=== PATIENT | female | born 1990 | race Caucasian/White ===

== ENCOUNTER 2018-10-03 08:57 | Outpatient (CLI) | END 2018-10-03 10:01 | disposition home or self-care (01) ==

== ENCOUNTER 2018-10-20 10:48 | Outpatient (CLI) | END 2018-10-20 13:00 | disposition home or self-care (01) ==

== ENCOUNTER 2018-10-21 11:10 | Outpatient (CLI) | END 2018-10-21 15:35 | disposition home or self-care (01) ==

== ENCOUNTER 2018-10-24 08:43 | Inpatient (IN) | payer OTHER ==
[~2018-10-24] VITALS: Ht 157.5 cm; Wt 91.4 kg
[~2018-10-24 08:43] MED LIST: PREN-93 PO
[2018-10-24 08:58] VITALS: BP 121/71; PULSE 96; RESP 18; Ht 157.5 cm; Wt 91.4 kg
--- NOTE | 2018-10-24 11:17 | HP ---
Date/Time of Note Date/Time of Note DATE: 10/24/18 TIME: 11:00 OB - History Hx of Present Free Text/Dictation 28 years old. 38 weeks 4 days . , admitted to the hospital for induction of labor. Suspected -induced hypertension. Her urine protein is 650 mg in 24 hours collection. She denies headache blurry vision or epigastric pain Chief Complaint: Induction of labor suspected PIH Estimated Due Date: Nov 03, 2018 : 3 Para: 2 Care: Good Care Ultrasounds: Normal mid trimester US Obstetrical Complications: Pre-eclampsia Medical Complications: None Past Family/Social History * Past Medical, Surgical, Family and Obstetric Histories reviewed from chart. Rubella: immune RPR/VDRL: Negative GBS Status: Negative HBsAG: Negative OB Admission Exam Vital Signs Vital Signs Vital Signs Date Temp Pulse Resp B/P (MAP) Pulse Ox O2 O2 Flow FiO2 Time Delivery Rate 10/24/18 98.4 96 18 121/71 Room Air 08:58 (88) Physical Exam HEENT: WNL Heart: Rhythm Normal Lungs: Clear, Equal Abdomen: WNL Extremities: Normal Reflexes: Normal Cervical Dilatation: 3cm Effacement: 50% Station: -2 Membranes: Intact Heart Rate: 130's Accelerations: Accelerations Present Decelerations: No Decelerations Varibility: Moderate Intensity: Mild Last 72 hours Lab Results CBC & BMP 10/24/18 09:30 Liver Function Test 10/24/18 09:30 Alanine Aminotransferase (ALT/SGPT) 6 L Albumin 3.2 L Alkaline Phosphatase 249 H Aspartate Amino Transf (AST/SGOT) 15 Direct Bilirubin 0.00 Total Protein 6.2 OB Assessment/Plan Reason for admission: other (38-1/2 weeks . Suspected PIH) Other plan: 28 years old 38-1/2 weeks . Suspected PIH with 24-hour urine protein 650 mg. Admitted to the hospital for induction of labor. Denies headache blurry vision epigastric pain. Her heart rate is category 1. Her pelvic examination cervix is 3 cm dilated 50% effaced vertex at -2 station. Plan of induction discussed. All questions answered MUSA BAZAN MD Oct 24, 2018 11:11
--- NOTE | 2018-10-24 11:19 | TRIAGE ---
OB Triage Datetime Report Generated by CPN: 10/24/2018 11:19 Datetime: 10/24/2018 10:00 Stage of : OB Triage Datetime: 10/24/2018 09:57 EGA: 38.4 Datetime: 10/24/2018 08:54 Assessment Type: Triage Maternal Assessment Level of Consciousness: Fully Conscious DTR's/Clonus: DTRs 2+; No Clonus Headache: Denies Blurred Vision: No Respiratory Effort: Unlabored; Regular Rhythm; Equal Expansion Breath Sounds, Left: Clear and Equal Breath Sounds, Right: Clear and Equal Nausea/Vomiting: Denies RUQ Epigastric Pain: Denies Lower Extremities Edema: None Degree: None Upper Extremities Edema: None Degree: None Facial Edema: None Fall Risk Assessment History of Falling: (0) No Secondary Diagnosis: (0) No Ambulatory Aid: (0) Bedrest/Nurse Assist IV Therapy: (0) No Gait: (0) Normal/Bedrest/Immobile Mental Status: (0) Oriented to Own Ability Fall Score: 0 Fall Risk Score Definition: No Risk: No action required Datetime: 10/24/2018 08:53 Time of Arrival: 10/24/2018 08:36 EGA: 38.4 Arrived By: Ambulatory Arrived From: Home Chief Complaint: pt here with 24 HOUR URINE COLLECTION. Movement: Present Contractions: Denies/Absent Rupture of Membranes: Denies Vaginal Bleeding: None Vaginal Discharge: Denies Recent Sexual Intercouse: Denies Abdominal Trauma: Not Applicable Patient Complaints: Cramping Time Provider Notified: 10/24/2018 11:00 Provider Notified: HORTENSIA Initial Plan: 24 HOUR URINE COLLECTION Datetime: 10/24/2018 08:49 Labor Evaluation Monitor Mode: External Monitor Mode: External US Datetime: 10/21/2018 15:17 Heart Rate FHR Baseline Rate: 130 Monitor Mode: External US FHR Baseline Changes: No Baseline Change Variability: Moderate 6-25 bpm Accelerations: 15X15 Decelerations: None Category: Category I Datetime: 10/21/2018 11:20 Fall Score: 0 Fall Risk Score Definition: No Risk: No action required Datetime: 10/21/2018 11:10 EGA: 38.1 Datetime: 10/20/2018 10:54 Fall Score: 0 Fall Risk Score Definition: No Risk: No action required Datetime: 10/20/2018 08:55 EGA: 38.0 Datetime: 10/03/2018 09:07 Fall Score: 0 Fall Risk Score Definition: No Risk: No action required Datetime: 10/03/2018 09:06 EGA: 35.4
[2018-10-24] MEDS ORDERED: LIDOCAINE 1% (MPF) 30 ML INJ INJ PRN (14:30)
[2018-10-24] MEDS ORDERED: BUTORPHANOL 2 MG INJ IV PRN (14:30)
[2018-10-24] MEDS ORDERED: OXYTOCIN 30 UNITS/LR 500 ML IV PRN (14:30)
[2018-10-24] MEDS ORDERED: OXYTOCIN 30 UNITS/LR 500 ML IV SCH ×2 (14:30)
[2018-10-24] MEDS ORDERED: METHYLERGONOVINE 0.2 MG INJ IM PRN (14:30)
[2018-10-24] MEDS ORDERED: CARBOPROST 250 MCG INJ IM PRN (14:30)
[2018-10-24] MEDS ORDERED: IBUPROFEN 600 MG TAB PO PRN (14:30)
[2018-10-24] MEDS ORDERED: MISOPROSTOL 200 MCG TAB PR PRN (14:30)
[2018-10-24] MEDS ORDERED: AMPICILLIN 2 GM/NS (PMX) 100 ML IV ONE (14:30)
[2018-10-24] MEDS: LACTATED RINGER'S 1,000 ML IV SCH (14:34)
[2018-10-24] MEDS: OXYTOCIN 30 UNITS/LR 500 ML IV SCH (14:40)
[2018-10-24] MEDS: AMPICILLIN 1 GM/NS (PMX) 50 ML IV SCH (19:27)
[2018-10-25] MEDS: LACTATED RINGER'S 1,000 ML IV SCH ×3 (01:33→18:35)
[2018-10-25] MEDS: AMPICILLIN 1 GM/NS (PMX) 50 ML IV SCH ×6 (01:33→22:20)
[2018-10-25] MEDS: DEXTROSE 5%-LR 1,000 ML IV SCH (08:03)
[2018-10-25] MEDS: OXYTOCIN 30 UNITS/LR 500 ML IV SCH (15:04)
[2018-10-26] MEDS: AMPICILLIN 1 GM/NS (PMX) 50 ML IV SCH ×7 (02:53→20:30)
[2018-10-26] MEDS: DEXTROSE 5%-LR 1,000 ML IV SCH ×4 (06:40→15:57)
[2018-10-26] MEDS: LACTATED RINGER'S 1,000 ML IV SCH ×4 (06:40→22:08)
--- NOTE | 2018-10-26 10:39 | PREAC ---
Date/Time of Note Date/Time of Note DATE: 10/26/18 TIME: 10:39 Anesthesia Eval and Record Evaluation Time Pre-Procedure Interview DATE: 10/26/18 TIME: 10:39 Age 28 Sex female NPO: 8 hrs Preoperative diagnosis Planned procedure labor epidural Past Medical History Past Medical History: Includes GI: Morbid obesity Surgery & Anesthesia Issues No known issue Meds Anticoagulation: No Beta Louis within 24 hr: No Reason Beta Louis not given: Pt. not on B-Louis Reported Medications Vit No.124/Iron/FA ( Vitamin Tablet) 1 Each Tablet, 1 EACH PO, TAB 10/21/18 Current Medications Lactated Ringer's 1,000 ml @ 125 mls/hr Q8H IV Last administered on 10/26/18at 10:35; Admin Dose 125 MLS/HR; Start 10/24/18 at 14:08 Ampicillin 50 ml @ 100 mls/hr Q4H IV Last administered on 10/26/18at 10:34; Admin Dose 100 MLS/HR; Start 10/24/18 at 16:30 Butorphanol Tartrate (Stadol) 2 mg Q2H PRN IV PAIN; Start 10/24/18 at 14:30 Lidocaine (Xylocaine 1% (Mpf)) 30 ml ONCE PRN INJ EPISIOTOMY; Start 10/24/18 at 14:30 Oxytocin/Lactated Ringer's 500 ml @ 500 mls/hr ONCE POST IV ; Start 10/24/18 at 14:30 Oxytocin/Lactated Ringer's 500 ml @ 125 mls/hr POST IV ; Start 10/24/18 at 14:30 Ibuprofen (Motrin) 600 mg ONCE PRN PO PAIN LEVEL 1-5; Start 10/24/18 at 14:30 Oxytocin/Lactated Ringer's 500 ml @ 0 mls/hr ONCE PRN IV VAGINAL BLEEDING; Start 10/24/18 at 14:30 Methylergonovine Maleate (Methergine) 0.2 mg ONCE PRN IM VAGINAL BLEEDING; Start 10/24/18 at 14:30 Carboprost Tromethamine (Hemabate) 250 mcg ONCE PRN IM VAGINAL BLEEDING; Start 10/24/18 at 14:30 Misoprostol (Cytotec) 1,000 mcg ONCE PRN FL VAGINAL BLEEDING; Start 10/24/18 at 14:30 Oxytocin/Lactated Ringer's 500 ml @ 0 mls/hr FOR INDUCTION IV Last administered on 10/25/18at 15:04; Admin Dose 0 MLS/HR; Start 10/24/18 at 14:30 Dextrose/Lactated Ringer's 1,000 ml @ 125 mls/hr Q8H IV Last administered on 10/26/18at 06:40; Admin Dose 125 MLS/HR; Start 10/25/18 at 07:57 Meds reviewed: Yes Allergies Coded Allergies: No Known Allergy (Unverified , 10/03/18) Allergies Reviewed: Yes Labs/Studies Labs Reviewed: Reviewed by anesthesiologist Result Diagram: 10/24/18 1350 10/24/18 0930 test: Positive Pre-procedure Exam Last vitals Vital Signs Date Temp Pulse Resp B/P (MAP) Pulse Ox O2 O2 Flow FiO2 Time Delivery Rate 10/24/18 98.4 96 18 121/71 Room Air 08:58 (88) Airway: Adequate mouth opening, Adequate thyromental dist Mallampati: Mallampati II Teeth: Normal Lung: Normal Heart: Normal ASA Physical Status ASA physical status: 2 Emergency: None Planned Anesthetic Neuraxial: Epidural Pre-operative Attestations Prior to commencing anesthesia and surgery, the patient was re-evaluated, there was verification of: *The patient's identity *The results of appropriate recent lab work and preoperative vital signs *The above evaluation not changing prior to induction *Anesthetic plan, risk benefits, alternative and complications discussed with patient/family; questions answered; patient/family understands, accepts and wishes to proceed. ALEXYS BRAXTON Oct 26, 2018 10:39
[2018-10-26] MEDS ORDERED: DIPHENHYDRAMINE 50 MG INJ IV PRN (11:00)
[2018-10-26] MEDS ORDERED: ONDANSETRON 4 MG INJ IV PRN (11:00)
[2018-10-26] MEDS ORDERED: KETOROLAC 30 MG INJ IV PRN (11:00)
[2018-10-26] MEDS ORDERED: NALOXONE (0.4 MG/ML) INJ IV PRN (11:00)
[2018-10-26] MEDS ORDERED: FENTAnyl 2MCG/ML-ROPIV 0.2% 100 ML BAG EPI SCH (11:00)
[2018-10-26] MEDS ORDERED: HYDROmorphONE 0.5 MG/0.5 ML SYG IV PRN ×2 (11:00)
--- NOTE | 2018-10-26 17:50 | PAC ---
Date/Time of Note Date/Time of Note DATE: 10/26/18 TIME: 17:50 Post-Anesthesia Notes Post-Anesthesia Note Last documented vital signs Vital Signs Date Temp Pulse Resp B/P (MAP) Pulse Ox O2 O2 Flow FiO2 Time Delivery Rate 10/24/18 98.4 96 18 121/71 Room Air 08:58 (88) Activity: WNL Respiratory function: WNL Cardiovascular function: WNL Mental status: Baseline Pain reasonably controlled: Yes Hydration appropriate: Yes Nausea/Vomiting absent: Yes ALEXYS BRAXTON Oct 26, 2018 17:50
[2018-10-26] MEDS: OXYTOCIN 30 UNITS/LR 500 ML IV SCH (17:59)
--- NOTE | 2018-10-26 23:21 | DELSUM ---
Delivery Summary A-C Datetime Report Generated by N: 10/26/2018 23:21 DELIVERY PERSONNEL Youtuber: Novak, Kaylynn MATERNAL INFORMATION Delivery Anesthesia: Epidural Medications in Delivery: pitocin (Annotations: Data stored by [facility] on behalf of user) Delivery QBL (ml): 200 Placenta Cultured: No Maternal Complications: Other RN Comments: hx eclampsia w last preg and this, gestational diabetic diet controlled w this preg, rh negative w rhogram given "last month" states pt (rhogam card doesn't have a date). LABOR SUMMARY EDC: 11/03/2018 00:00 EDC: 11/03/2018 00:00 No. Babies in Womb: 1 Attempted: No Labor Anesthesia: None LABOR INFORMATION Reason for Induction: Gest. HTN/PreEclam/Eclamp; Maternal Diabetes Onset of Labor: 10/26/2018 08:00 Complete Dilatation: 10/26/2018 22:30 Oxytocin: Induction Group B Beta Strep: Positive Antibiotics # of Doses: 15 Antibiotics Time of Last Dose: 10/26/2018 18:34 Steroids Given: None Reason Steroids Not Administered: Not Applicable MEMBRANES Membranes Rupture Method: Artificial Rupture of Membranes: 10/26/2018 12:23 Length of Rupture (hr): 10.62 Amniotic Fluid Color: Clear Amniotic Fluid Amount: Small STAGES OF LABOR Stage 1 hr: 14 Stage 1 min: 30 Stage 2 hr: 0 Stage 2 min: 30 Stage 3 hr: 0 Stage 3 min: 3 Total Time in Labor hr: 15 Total Time in Labor min: 3 VAGINAL DELIVERY Episiotomy: None Laceration Extension: First Degree Laceration Type: Perineal Laceration Repair: Yes Initial Vag Sponge Count: 10 Final Vag Sponge Count: 10 Initial Vag Sharps Count: 1 Final Vag Sharps Count: 2 Sponge Count Correct: Yes; Vaginal Sweep Performed Sharps Count Correct: Yes BABY A INFORMATION Delivery Date/Time: 10/26/2018 23:00 Method of Delivery: Vaginal Born in Route : No : N/A Forceps: N/A Vacuum Extraction: N/A Shoulder Dystocia : No SHOULDER DYSTOCIA BABY A Delivery Date/Time: 10/26/2018 23:00 PRESENTATION/POSITION BABY A Presentation: Cephalic Presentation: Cephalic Presentation: Cephalic Presentation: Cephalic Cephalic Presentation: Vertex Vertex Position: Left Occipital Anterior Breech Presentation: N/A PLACENTA INFORMATION BABY A Placenta Delivery Time : 10/26/2018 23:03 Placenta Method of Delivery: Spontaneous Placenta Status: Delivered SCORES BABY A Heart Rate 1 min: >100 bpm Resp Effort 1 min: Good Cry Reflex Irritability 1 min: Cough/Sneeze/Pulls Away Muscle Tone 1 min: Active Motion Color 1 min: Blue/Pale Resuscitation Effort 1 min: Tactile Stimulation SCORE 1 MIN: 8 Heart Rate 5 min: >100 bpm Resp Effort 5 min: Good Cry Reflex Irritability 5 min: Cough/Sneeze/Pulls Away Muscle Tone 5 min: Active Motion Color 5 min: Body [place], Extremit Blue Resuscitation Effort 5 min: Tactile Stimulation SCORE 5 MIN: 9 INFANT INFORMATION BABY A Gestational Age at Delivery: 38.6 Gestational Status: Early Term- 37- 38.6 Weeks Outcome : Liveborn Condition : Stable Infant Sex: Male IDENTIFICATION/MEDS BABY A ID Band Number: [id number] ID Band Location: Right Leg; Left Arm Sensor Applied: Yes Sensor Number: [id number] Sensor Location : Cord Clamp Vitamin K Given : Not Given Erythromycin Given: Not Given WEIGHT/LENGTH BABY A Birthweight (gm): 3705 Weight (lb): 8 Infant Weight (oz): 3 Length (in): 20.00 Length (cm): 50.80 CORD INFORMATION BABY A No. Cord Vessels: 3 Nuchal Cord : N/A Cord Blood Taken: Yes Infant Suction: Mouth; Nose ASSESSMENT BABY A Complications: None Physical Findings at Delivery: Within Normal Limits Respirations: Appears Normal Applications Packager/ALS Called : No Infant Care By: Vicki GANT Transferred To: Remains with Mother
--- NOTE | 2018-10-26 23:24 | LDN ---
Date/Time of Note Date/Time of Note DATE: 10/26/18 TIME: 23:22 Delivery Summary October 26, 2018 Placenta Delivered: Spontaneously Meconium: none Episiotomy: No Indication for episiotomy N/A Perineal laceration: 1 Laceration repair: First-degree left labial laceration with first-degree fourchette laceration and superficial mucosal laceration above the urethra. All repaired using 3-0 chromic. Hemostasis was complete. Anesthesia type: Epidural Estimated blood loss: 200 Sponge & Needle done & correct: Yes All needle counts correct: Yes Any foreign bodies felt in the: No Infant Delivery Information Sex Infant Sex: male Apgars 1 Minute: 8 5 Minute: 9 Suctioning Nose & mouth suctioned at elvis: Yes Delee suction performed: Yes Umbilical Cord Umbilical cord with: 3 Vessels Cord presentations: no nuchal cord Cord Blood was obtained: Yes SANDER CANTU MD Oct 26, 2018 23:24
[2018-10-27] MEDS ORDERED: OXYTOCIN 30 UNITS/LR 500 ML IV SCH (00:29)
[2018-10-27] MEDS ORDERED: CARBOPROST 250 MCG INJ IM PRN (00:30)
[2018-10-27] MEDS ORDERED: OXYTOCIN 30 UNITS/LR 500 ML IV PRN (00:30)
[2018-10-27] MEDS ORDERED: ACETAMINOPHEN 325 MG TAB PO PRN (00:30)
[2018-10-27] MEDS ORDERED: HYDROCODONE/APAP (5/325) TAB PO PRN (00:30)
[2018-10-27] MEDS ORDERED: NACL 0.9% 3 ML SYG IV SCH (00:30)
[2018-10-27] MEDS ORDERED: ONDANSETRON 4 MG INJ IV PRN (00:30)
[2018-10-27] MEDS ORDERED: MISOPROSTOL 200 MCG TAB PR PRN (00:30)
[2018-10-27] MEDS ORDERED: ZOLPIDEM 5 MG TAB PO PRN (00:30)
[2018-10-27] MEDS ORDERED: DIPHENHYDRAMINE 25 MG CAP PO PRN (00:30)
[2018-10-27 00:45] VITALS: BP 126/72; PULSE 80; RESP 18
--- NOTE | 2018-10-27 00:45 | NUR ---
ice pack applied in the area Addendum: 10/28/18 at 2056 by JV WELCH RN Amended: Links added.
[2018-10-27 01:30] VITALS: BP 130/71; PULSE 73; RESP 18
[2018-10-27] MEDS: WITCH HAZEL/GLYCERIN PAD PR PRN (01:30)
[2018-10-27 04:30] VITALS: BP 126/72; PULSE 72; RESP 18
--- NOTE | 2018-10-27 05:05 | NUR ---
eoss; Assisted Patient in the bathroom, voided 2X already, Vital signs normal, for CBC today
[2018-10-27] MEDS: IBUPROFEN 600 MG TAB PO SCH ×4 (05:37→23:30)
[2018-10-27 08:00] VITALS: BP 140/75; PULSE 66; RESP 18
[2018-10-27] MEDS: SENNA/DOCUSATE NA (8.6MG/50MG) TAB PO SCH ×2 (09:10→21:10)
--- NOTE | 2018-10-27 12:31 | QN ---
Documentation Comment day 1 Febrile Vital signs are stable Abdomen soft Uterus firm Lochia normal Extremities no Ambulation encouraged MUSA BAZAN MD Oct 27, 2018 12:31
[2018-10-27 16:11] VITALS: BP 129/67; PULSE 58; RESP 20
--- NOTE | 2018-10-27 17:52 | NUR ---
EOSS: PT IS IN STABLE CONDITION VSS, DENIES PAIN AND DISCOMFORT AT THIS TIME. PT BREAST FEEDING BABY WITHOUT DIFFICULTY.
[2018-10-27] MEDS: LANOLIN HPA 1 PKT TOP PRN (18:06)
[2018-10-27 20:15] VITALS: BP 139/67; PULSE 70; RESP 20
[2018-10-28 03:45] VITALS: BP 110/67; PULSE 65; RESP 20
--- NOTE | 2018-10-28 05:17 | NUR ---
EOSS: Pt is in stable condition. No distress noted. VSS. Fundus firm with small amount of lochia noted. Bonding well with baby.
[2018-10-28] MEDS: IBUPROFEN 600 MG TAB PO SCH ×3 (05:49→17:14)
[2018-10-28 08:00] VITALS: BP 132/78; PULSE 66; RESP 18
[2018-10-28] MEDS: SENNA/DOCUSATE NA (8.6MG/50MG) TAB PO SCH (08:11)
[2018-10-28] MEDS: LANOLIN HPA 1 PKT TOP PRN (08:11)
[2018-10-28] MEDS ORDERED: BENZOCAINE 20% 56 ML SPRAY TOP PRN (10:00)
--- NOTE | 2018-10-28 10:03 | PD.PPDC ---
FURNITURE SERVICER Discharge Instruction Condition [id number] Patient Condition: Pmosg0y Good Diet [id number] Diet: [id number] Resume Regular Diet Activity/Restrictions [id number] Activity: [id number] Normal Activity May Shower [id number] Restrictions: [id number] No Exercising No Lifting No Driving No Sexual Activity Nothing in the Vagina [place] No Tampons, douche Follow-up Follow-up with Physician: 2, Week/Weeks Provider Information: instruction given recommended to make appointment to be seen at the clinic in 2 weeks Return to clinic for [id number] GROUP SEGMENT CONSULTANT Instructions: [id number] Fever greater than 101 Chills Worsening abdominal pain Excessive Vaginal Bleeding More than 2 pads per hour Unable to tolerate diet MUSA BAZAN MD Oct 28, 2018 10:03
--- NOTE | 2018-10-28 10:06 | DS ---
Date/Time of Note Date/Time of Note DATE: 10/28/18 TIME: 10:04 Discharge Summary Admission/Discharge Info Admit Date/Time Oct 24, 2018 at 11:10 Discharge Date/Time October 28, 2018 at 10 AM Discharge Diagnosis Post normal vaginal delivery day 2 Patient Condition: Good Consults None Procedures Normal vaginal delivery Hx of Present Illness Term admitted to the hospital for delivery Hospital Course Satisfactory recovery uneventful Home Meds Reported Medications Vit No.124/Iron/FA ( Vitamin Tablet) 1 Each Tablet, 1 EACH PO, TAB 10/21/18 Follow-up Plan instruction given recommended to make appointment to be seen at the clinic in 2 weeks Primary Care Provider Not On Staff Doctor Time spent on discharge: < 30 minutes MUSA BAZAN MD Oct 28, 2018 10:06
[2018-10-28] MEDS: WITCH HAZEL/GLYCERIN PAD PR PRN (10:50)
[2018-10-28 16:00] VITALS: BP 122/68; PULSE 64; RESP 17
--- NOTE | 2018-10-28 18:43 | NUR ---
EOSS: PATIENT IN STABLE CONDITION. BONDING WELL WITH HER BABY. WILL BE STAYING A GUEST DUE TO HER BABY STAYING FOR MONITORING CIRCUMCISION AND JAUNDICE.
--- NOTE | 2018-10-28 18:45 | NUR ---
PATIENT DISCHARGED IN STABLE CONDITION. WILL BE STAYING A GUEST DUE TO HER BABY STAYING FOR OBSERVATION POST CIRCUMCISION AND UNDER BILI BLANKET AND REPEAT BILI IN AM. DISCHARGE INSTRUCTIONS GIVEN TO PATIENT AND PATIENT VERBALIZED UNDERSTANDING.
== END 2018-10-28 18:46 | disposition home or self-care (01) | DRG 807 ==
LOC: L-D 08:43 → OBT 08:43 → L-D 11:10 → OBT 11:23 → L-D 13:37 → PP1 10-27 00:36
PROVIDERS: ADMIT Obstetrics & Gynecology; ATTEND Obstetrics & Gynecology
PROC: 10E0XZZ Delivery of Products of Conception, External Approach (ICD-10-PCS; principal; 2018-10-26)
PROC: 0KQM0ZZ Repair Perineum Muscle, Open Approach (ICD-10-PCS; 2018-10-26)
DX: O70.0 First degree perineal laceration during delivery (principal); Z37.0 Single live birth; O13.4 Gestational [pregnancy-induced] hypertension without significant proteinuria, complicating childbirth; Z3A.38 38 weeks gestation of pregnancy
CPT/HCPCS: 62319; 76816; 76818; 80053; 82575; 82962; 84156; 84560; 85014; 85018; 85025; 85610; 85730; 86592; 86850; 86870; 86885; 86900; 86901; 87340; G0463; J0290; J2405; J2590; J2790; J3010; J7120; J7121